=== PATIENT | female | born 1940 | race Two or more races ===

== ENCOUNTER → 2017-07-30 | Emergency (ER) | payer OTHER ==
[~2017-07-30] VITALS: Ht 172.7 cm; Wt 80.7 kg
[~2017-07-30] MED LIST: ADULT ASPIRIN81 MG; CRESTOR20 MG; GILTUSS TR TAB1 EACH PO; GLIMEPIRIDE1 MG PO; HYDROCHLOROTHIA25 MG PO; LIPITOR40 MG PO; OSEL75CA PO; VERAPAMIL HCL240 M1; ZESTRIL20 MG PO
== END | disposition home or self-care (01) ==
LOC: ER 08:46
DX: B34.9 Viral infection, unspecified (principal)

== ENCOUNTER 2018-03-25 09:06 | Outpatient (CLI) | payer OTHER | END 2018-03-25 09:17 | disposition home or self-care (01) | LOC: MAMO-SONO 09:06 | DX: N64.89 Other specified disorders of breast (principal) ==

== ENCOUNTER 2018-06-17 10:43 | Emergency (ER) | payer OTHER ==
[~2018-06-17] VITALS: Ht 170.2 cm; Wt 89.8 kg
== END 2018-06-17 13:35 | disposition home or self-care (01) ==
LOC: ER 10:43
DX: H57.89 Other specified disorders of eye and adnexa (principal)

== ENCOUNTER → 2019-03-28 | Outpatient (CLI) | payer OTHER | END | disposition home or self-care (01) | LOC: MAMO-SONO 09:51 | DX: N60.11 Diffuse cystic mastopathy of right breast (principal); N60.12 Diffuse cystic mastopathy of left breast; C50.412 Malignant neoplasm of upper-outer quadrant of left female breast ==

== ENCOUNTER 2019-05-27 08:50 | Outpatient (CLI) | payer OTHER | END 2019-05-27 09:00 | disposition home or self-care (01) | LOC: MAMO-SONO 08:50 | DX: Z12.31 Encounter for screening mammogram for malignant neoplasm of breast (principal); Z87.898 Personal history of other specified conditions; N60.11 Diffuse cystic mastopathy of right breast; N60.12 Diffuse cystic mastopathy of left breast ==

== ENCOUNTER 2023-03-10 20:10 | Emergency (ER) | payer OTHER ==
[~2023-03-10] VITALS: Ht 170.2 cm; Wt 86.2 kg
== END 2023-03-10 22:47 | disposition home or self-care (01) ==
LOC: ER 20:10
DX: U07.1 COVID-19 (principal); R50.9 Fever, unspecified
CPT/HCPCS: 36415; 96372; 99284; J1885